=== PATIENT | male | born 1950 | race African-American/Black ===

== ENCOUNTER 2021-02-15 12:54 | Inpatient (IN) | payer MEDICARE, MEDICAID ==
[~2021-02-15] VITALS: Ht 175.3 cm; Wt 83.0 kg
[~2021-02-15 12:54] MED LIST: ALBU18HF2 IH; ATOR40TA70 MT; BENA5TAB6 PO; BETA15OI7 TP; CLAR-44 PO; CYAN-50 PO; CYCL10TA7 PO; EMPA1TAB MT; ERGO500013 PO; HYDR-4009 MT; METF-416 PO
[2021-02-15] MEDS ORDERED: IBUPROFEN 800MG TABLET PO NR (14:00)
[2021-02-15] MEDS ORDERED: T3 PO (16:33)
[2021-02-15 18:57] LABS: HEMATOCRIT. 48.5 % (42.0-52.0); HEMOGLOBIN. 16.3 g/dL (14.0-18.0); MEAN CORPUSCULAR HEMOGLOBIN 30.1 pg (28.0-32.0); MEAN CORPUSCULAR VOLUME 89.5 fL (80.0-94.0); PLATELET 266 x1000/uL (130-400); RED BLOOD CELL COUNT 5.42 mill/uL (4.7-6.1); RED CELL DISTRIBUTION WIDTH 14.4 % (11.6-14.6)
[2021-02-15] MEDS ORDERED: MORPHINE SULFATE 4 MG/ML CPJ (NOT FOR IM USE) IV SCH (19:00)
[2021-02-15 19:04] LABS: PARTIAL THROMBOPLASTIN TIME 21.9 sec (23.4-31.0); PROTHROMBIN TIME 10.3 sec (9.6-11.0)
[2021-02-15 19:07] LABS: CHLORIDE 100 mEq/L (98-107)
[2021-02-15 20:21] LABS: PLATELET ESTIMATE NORMAL
[2021-02-15 21:14] LABS: CLARITY URINE CLEAR (CLEAR); COLOR URINE YELLOW (YELLOW); KETONES URINE TRACE (NEGATIVE); LEUKOCYTE ESTERASE URINE NEGATIVE (NEGATIVE); NITRITE URINE NEGATIVE (NEGATIVE); OCCULT BLOOD URINE NEGATIVE (NEGATIVE); PROTEIN URINE TRACE (NEGATIVE); SPECIFIC GRAVITY URINE 1.018 (1.005-1.030); UROBILINOGEN URINE 0.2 E.U./dL (0.2-1.0)
[2021-02-16 00:30] VITALS: BP 141/75
[2021-02-16] MEDS ORDERED: DIPHENHYDRAMINE 50MG/ML VIAL IV PRN (01:00)
[2021-02-16] MEDS ORDERED: ACETAMINOPHEN 650MG/20.3ML UDC GT PRN (01:00)
[2021-02-16] MEDS ORDERED: ACETAMINOPHEN 650MG SUPP PR PRN ×2 (01:00)
[2021-02-16] MEDS ORDERED: ONDANSETRON HCL 4MG/2ML INJ IV PRN (01:00)
[2021-02-16] MEDS ORDERED: NA PHOS,M-B/NA PHOS,DI-BA ENEMA 118ML PR PRN (01:00)
[2021-02-16] MEDS ORDERED: GUAIFENESIN 200MG/10ML SUGAR FREE UDC PO PRN (01:00)
[2021-02-16] MEDS ORDERED: CLONIDINE 0.1MG TABLET PO PRN (01:00)
[2021-02-16] MEDS ORDERED: ENOXAPARIN 40MG/0.4ML SYR SUBCUT SCH (01:00)
[2021-02-16] MEDS ORDERED: MAGNESIUM/ALUMINUM HYDROXIDE/SIMETHICONE 30ML UDC PO PRN (01:00)
[2021-02-16 04:00] VITALS: BP 124/70
[2021-02-16] MEDS: MORPHINE SULFATE 2 MG/ML CPJ (NOT FOR IM USE) IV PRN ×3 (07:55→17:47)
[2021-02-16] MEDS: ENOXAPARIN 30MG/0.3ML SYR SUBCUT SCH ×2 (10:34→20:34)
[2021-02-16 12:00] VITALS: BP 126/74
[2021-02-16] MEDS ORDERED: DEXTROSE 50% WATER 50ML SYRINGE IV PRN (12:15)
[2021-02-16] MEDS: BLOOD SUGAR DIAGNOSTIC STRIP TEST SCH ×3 (12:52→20:38)
[2021-02-16] MEDS: INSULIN LISPRO 100 UNITS/ML SUBCUT SCH ×3 (13:08→20:38)
[2021-02-16 16:00] VITALS: BP 133/75
[2021-02-16 20:00] VITALS: BP 123/64
[2021-02-17] VITALS: BP 126/74
[2021-02-17 04:00] VITALS: BP 120/75
[2021-02-17] MEDS: MORPHINE SULFATE 2 MG/ML CPJ (NOT FOR IM USE) IV PRN (04:00)
[2021-02-17] MEDS: INSULIN LISPRO 100 UNITS/ML SUBCUT SCH ×4 (06:36→21:19)
[2021-02-17] MEDS: BLOOD SUGAR DIAGNOSTIC STRIP TEST SCH ×4 (06:36→21:22)
[2021-02-17 07:16] LABS: CHLORIDE 101 mEq/L (98-107)
[2021-02-17 07:24] LABS: HEMATOCRIT. 42.7 % (42.0-52.0); HEMOGLOBIN. 14.3 g/dL (14.0-18.0); MEAN CORPUSCULAR HEMOGLOBIN 29.7 pg (28.0-32.0); MEAN CORPUSCULAR VOLUME 88.3 fL (80.0-94.0); MEAN PLATELET VOLUME 9.3 fl (7.4-10.4); PLATELET 243 x1000/uL (130-400); RED BLOOD CELL COUNT 4.84 mill/uL (4.7-6.1); RED CELL DISTRIBUTION WIDTH 13.6 % (11.6-14.6)
[2021-02-17 07:28] LABS: HDL CHOLESTEROL 42 mg/dL (40-59); LDL CHOLESTEROL 92 mg/dL (5-100)
[2021-02-17 08:00] VITALS: BP 122/69
[2021-02-17] MEDS: ENOXAPARIN 30MG/0.3ML SYR SUBCUT SCH ×2 (09:06→21:23)
[2021-02-17] MEDS: THIAMINE HCL 100MG TABLET PO SCH (09:07)
[2021-02-17 12:00] VITALS: BP 123/74
[2021-02-17] MEDS: HYDROCODONE/APAP 7.5/325MG 1 TAB TABLET PO PRN ×2 (12:27→19:51)
[2021-02-17] MEDS: MORPHINE SULFATE 15MG TABLET SR PO SCH ×2 (14:34→21:22)
[2021-02-17 16:00] VITALS: BP 120/100
[2021-02-17 20:00] VITALS: BP 133/79
[2021-02-17 21:11] LABS: PLATELET ESTIMATE NORMAL
[2021-02-17] MEDS: DOCUSATE SODIUM 100MG CAPSULE PO PRN (21:20)
[2021-02-18] VITALS: BP 148/78
[2021-02-18] MEDS: DOCUSATE SODIUM 100MG CAPSULE PO PRN (00:18)
[2021-02-18 04:00] VITALS: BP 141/78
[2021-02-18] MEDS: BLOOD SUGAR DIAGNOSTIC STRIP TEST SCH ×4 (06:22→21:00)
[2021-02-18] MEDS: INSULIN LISPRO 100 UNITS/ML SUBCUT SCH ×4 (06:24→21:00)
[2021-02-18 08:00] VITALS: BP 116/73
[2021-02-18 08:06] LABS: KAPPA LT CHAINS FREE SERUM 569.8 mg/L (3.3-19.4); KAPPA/LAMBDA RATIO 146.1 (0.26-1.65); LAMBDA LT CHAINS FREE SERUM 3.9 mg/L (5.7-26.3)
[2021-02-18] MEDS: MORPHINE SULFATE 15MG TABLET SR PO SCH ×2 (11:00→21:58)
[2021-02-18] MEDS: THIAMINE HCL 100MG TABLET PO SCH (11:00)
[2021-02-18] MEDS: ENOXAPARIN 30MG/0.3ML SYR SUBCUT SCH (11:00)
[2021-02-18 12:00] VITALS: BP 129/76
[2021-02-18 16:00] VITALS: BP 159/87
[2021-02-18 20:00] VITALS: BP 129/71
[2021-02-18] MEDS ORDERED: MSCON15 PO (20:25)
[2021-02-19] VITALS (7 sets, daily range): BP systolic 110–162; BP diastolic 71–88
[2021-02-19] MEDS: BLOOD SUGAR DIAGNOSTIC STRIP TEST SCH ×3 (05:50→17:03)
[2021-02-19] MEDS: INSULIN LISPRO 100 UNITS/ML SUBCUT SCH ×3 (05:52→17:28)
[2021-02-19] MEDS: MORPHINE SULFATE 15MG TABLET SR PO SCH ×2 (08:30→21:00)
[2021-02-19] MEDS ORDERED: ENOXAPARIN 40MG/0.4ML SYR SUBCUT SCH (09:00)
[2021-02-19] MEDS ORDERED: LIDOCAINE HCL 1% 20ML VIAL (Pyxis) INJ ONE (10:58)
[2021-02-19] MEDS ORDERED: FENTANYL CITRATE/PF 50MCG/ML 2ML VIAL ONE (11:06)
[2021-02-19] MEDS ORDERED: PROPOFOL 200MG/20ML VIAL IV ONE (11:06)
[2021-02-19] MEDS ORDERED: MIDAZOLAM HCL 2 MG/2 ML VIAL ONE (11:06)
[2021-02-19] MEDS ORDERED: ONDANSETRON HCL 4MG/2ML INJ ONE (11:24)
[2021-02-19] MEDS ORDERED: DEXAMETHASONE 4MG/ML 1ML VIAL ONE (11:24)
[2021-02-19] MEDS ORDERED: MEPERIDINE HCL/PF 25MG/ML CPJ IV PRN (11:30)
[2021-02-19] MEDS ORDERED: LABETALOL 5MG/ML SYR 20 MG/4 ML SYRINGE IV PRN (11:30)
[2021-02-19] MEDS ORDERED: ONDANSETRON HCL 4MG/2ML INJ IV PRN (11:30)
[2021-02-19] MEDS ORDERED: HYDROMORPHONE HCL/PF 2MG/ML CPJ IV PRN (11:30)
[2021-02-19] MEDS ORDERED: MSCON15 PO (12:16)
[2021-02-19] MEDS: THIAMINE HCL 100MG TABLET PO SCH (14:32)
[2021-02-19] MEDS: HYDROCODONE/APAP 7.5/325MG 1 TAB TABLET PO PRN (18:22)
== END 2021-02-19 20:45 | disposition home or self-care (01) | DRG 552 ==
LOC: ER 12:54 → 8WST 18:22 → ENRESERV 20:50 → CANRESERV 20:50 → ENRESERV 22:07
PROVIDERS: ADMIT Family Medicine; ATTEND Family Medicine
PROC: 07DQ3ZX Extraction of Sternum Bone Marrow, Percutaneous Approach, Diagnostic (ICD-10-PCS; principal; 2021-02-19)
DX: S22.062 Unstable burst fracture of T7-T8 vertebra (principal); C90.00 Multiple myeloma not having achieved remission; Z87.442 Personal history of urinary calculi; J44.9 Chronic obstructive pulmonary disease, unspecified; I25.10 Atherosclerotic heart disease of native coronary artery without angina pectoris; F17.200 Nicotine dependence, unspecified, uncomplicated; E11.9 Type 2 diabetes mellitus without complications; E78.5 Hyperlipidemia, unspecified; I10 Essential (primary) hypertension; E66.9 Obesity, unspecified; M43.16 Spondylolisthesis, lumbar region; X58.XXXA Exposure to other specified factors, initial encounter; Y93.89 Activity, other specified; Y92.89 Other specified places as the place of occurrence of the external cause; Z90.49 Acquired absence of other specified parts of digestive tract; Z68.27 Body mass index [BMI] 27.0-27.9, adult; Y99.8 Other external cause status; F10.11 Alcohol abuse, in remission
CPT/HCPCS: 36415; 38220; 71045; 71101; 72146; 72148; 80053; 80061; 81003; 82962; 83735; 83883; 84484; 85025; 85060; 85097; 88313; 99285; J1100; J1650; J1815; J2250; J2270; J2405; J2704; J3010; J3490